=== PATIENT | female | born 1980 ===

== ENCOUNTER 2023-05-02 15:22 | Outpatient (CLI) | payer OTHER, SELFPAY ==
--- NOTE | 2023-05-02 15:30 | CRLHL7_ITS ---
For Patients: As a result of the Century Cures Act, medical imaging exams and procedure reports are released immediately into your electronic medical record. You may view this report before your referring provider. If you have questions, please contact your health care provider. INDICATION: Hematuria, question renal stones TECHNIQUE: CT abdomen and pelvis without contrast. COMPARISON: None. FINDINGS: Lower chest: No significant abnormality appreciated. Hepatobiliary: No significant abnormality appreciated. Spleen: Unremarkable. Pancreas: Unremarkable. Adrenal glands: Unremarkable. Kidneys: No gross exophytic lesion. Minimal lobulation of the renal contour. No hydronephrosis. No appreciated calculi. Bowel: No obstruction. No focal perienteric or pericolonic stranding. The appendix is visualized and appears unremarkable. Vascular: Unremarkable. Lymph nodes: No gross lymphadenopathy. Peritoneum: No free air. No free fluid. : Calcific foci in the vicinity of the right ureter, favored to be within vessels rather than the ureter, without convincing evidence of ureteral or bladder calculi. No convincing evidence of a significant bladder abnormality. Multifocal heterogeneous hypodensities within the cervix/uterus with calcifications. Soft tissues: Unremarkable. Bones: Mild degenerative changes and sclerotic changes of the SI joints with no significant abnormality appreciated. IMPRESSION: 1. Heterogeneous hypodensities and calcifications in the cervix/lower uterus. Findings may represent nabothian cysts but overall are severely suboptimally evaluated on this examination. Recommend pelvic ultrasound for further evaluation. 2. Unremarkable appearance of the kidneys, ureters, and bladder on this noncontrast study. If there is continued clinical suspicion for significant urological pathology, a contrast-enhanced examination could be considered for further evaluation. Please note that all CT scans at this facility use dose modulation, iterative reconstruction, and/or weight-based dosing when appropriate to reduce radiation dose to as low as reasonably achievable. Dictated by Sanjeev Camp MD @ 05/04/2023 6:19:51 PM (Electronically Signed)
== END 2023-05-02 15:23 | disposition home or self-care (01) ==
PROVIDERS: PCP Physician Assistant Medical; Visit Provider Physician Assistant Medical
DX: R31.9 Hematuria, unspecified (principal)
CPT/HCPCS: 74176; 87086

== ENCOUNTER 2023-11-03 09:29 | Outpatient (CLI) | payer OTHER, SELFPAY | END 2023-11-03 09:30 | disposition home or self-care (01) | PROVIDERS: PCP Physician Assistant Medical; Visit Provider Physician Assistant Medical | DX: Z00.00 Encounter for general adult medical examination without abnormal findings (principal); R79.89 Other specified abnormal findings of blood chemistry; R73.03 Prediabetes; R53.83 Other fatigue; F41.9 Anxiety disorder, unspecified | CPT/HCPCS: 80053; 80061; 82306; 82607; 82728 ==

== ENCOUNTER 2024-01-26 13:10 | Outpatient (CLI) | payer OTHER, SELFPAY ==
--- NOTE | 2024-02-10 12:55 | W.PM.SLEEP ---
Sleep Study Details Details Interpreting Provider: Vaishnavi Date of Sleep Study: 01/26/24 Sleep Study Details: STUDY TYPE:? Home unattended ? BMI:? 37 ORDERING PROVIDER:? Vaishnavi INDICATION:? Concern about sleep apnea ? SLEEP SUMMARY:? 412 minutes monitored RESPIRATORY SUMMARY:? AHI 29 Low oxygen 79 3.4% of study oxygen less than 90% Snoring 91.6% PERIODIC LIMB MOVEMENTS OF SLEEP:? Not recorded CARDIAC:? Range 60-1 awake, mean 73.3 beats per minute IMPRESSION:? Moderate nearly severe obstructive sleep apnea RECOMMENDATION: Treatment options include weight loss, CPAP AutoSet or dental appliance. I would favor CPAP trial.
== END 2024-01-26 13:11 | disposition home or self-care (01) ==
LOC: SLEEP 13:11
PROVIDERS: PCP Physician Assistant Medical; Visit Provider Physician Assistant Medical
DX: G47.33 Obstructive sleep apnea (adult) (pediatric) (principal)
CPT/HCPCS: 95806